=== PATIENT | female | born 1950 | race Two or more races ===

== ENCOUNTER 2024-07-15 03:54 | Emergency (ER) | payer OTHER ==
[~2024-07-15] VITALS: Ht 154.9 cm; Wt 55.3 kg
[2024-07-15] MEDS ORDERED: ESOMEPRAZOLE MA40 MG (04:16)
[2024-07-15] MEDS ORDERED: ANASTROZOLE1 MG (04:16)
[2024-07-15] MEDS ORDERED: METFORMIN HCL500 M2 (04:16)
[2024-07-15] MEDS ORDERED: ZETIA10 MG (04:16)
[2024-07-15] MEDS ORDERED: GLUMETZA500 MG (04:17)
[2024-07-15] MEDS ORDERED: NASAL MIST126 ML (04:17)
[2024-07-15] MEDS ORDERED: TENORMIN25 MG (04:17)
[2024-07-15] MEDS ORDERED: RINGERS SOLUTION,LACTATED 1,000 ML IV STA (05:35)
[2024-07-15] MEDS ORDERED: MEPERIDINE HCL/PF 25 MG/ML VIAL IM STA (05:36)
[2024-07-15] MEDS ORDERED: PROMETHAZINE HCL 25 MG/ML AMPUL IM STA (05:36)
[2024-07-15 06:10] LABS: HEMATOCRIT 41.4 % (36.0-45.00); HEMOGLOBIN 13.8 g/dL (12.0-15.00); MEAN CELL VOLUME 85.3 fL (80.00-100.00); MEAN CORPUSCULAR HEMOGLOBIN 28.3 pg (27.00-32.0); MEAN CORPUSCULAR HGB CONC 33.2 g/dl (32.0-36.0); PLATELET COUNT 165 K/uL (150-450); RED BLOOD COUNT 4.86 M/uL (4.00-6.00); RED CELL DISTRIBUTION WIDTH 13.5 % (11.5-14.5)
[2024-07-15 06:42] LABS: CALCIUM 9.3 mg/dL (8.5-10.1); CREATININE SERUM 0.68 mg/dL (0.55-1.02); GFR 84.12; POTASSIUM 3.82 mEq/L (3.5-5.1)
[2024-07-15 06:43] LABS: INR 1.04; PROTHROMBIN TIME 11.3 SECONDS (9.0-11.5)
[2024-07-15 07:06] LABS: PH,URINE 5.5 (5.0-8.0); URINE APPEARANCE Clear; URINE BILIRRUBIN Negative (NEGATIVE); URINE BLOOD Negative; URINE COLOR Yellow; URINE GLUCOSE Negative (NEGATIVE); URINE KETONE Negative (NEGATIVE); URINE LEUKOCYTE Small; URINE NITRATE Negative; URINE PROTEIN Negative (NEGATIVE); URINE UROBILINOGEN 0.2 E.U./dl
[2024-07-15 07:10] LABS: URINE BACTERIA 25.7 uL (0.0-1933); URINE EPITHELIAL CELLS 6.1 uL (0.0-38.8); URINE RBC 3.8 uL (0.0-20.8); URINE WBC 58.5 uL (0.0-23.2)
[2024-07-15 07:12] LABS: URINE CAST 0.44 uL (0.0-1.40)
== END 2024-07-15 15:21 | disposition home or self-care (01) ==
LOC: ER 03:56
DX: R10.9 Unspecified abdominal pain (principal); Z88.0 Allergy status to penicillin; Z88.6 Allergy status to analgesic agent; Z91.013 Allergy to seafood
CPT/HCPCS: 36415; 74176; 96372; 99284; J3490 ×2